=== PATIENT | male | born 1945 | race Caucasian/White ===

== ENCOUNTER 2021-07-17 15:43 | Emergency (ER) | payer OTHER, SELFPAY ==
[2021-07-17 15:44] VITALS: BP 142/39; PULSE 71; RESP 16; TEMP 36.6; O2SAT 97; BMI 27.8
--- NOTE | 2021-07-17 16:17 | NURSING ---
CALLED [facility]HAEL BROWN AND LEFT MESSAGE FOR BED CONTROL
--- NOTE | 2021-07-17 16:20 | EDS_ITS ---
HPI History of Present Illness Chief Complaint: Cellulitis Informant: patient and EMS Narrative Narrative: 75-year-old male presenting to the emergency department for evaluation of cellulitis. Patient states that he is in the wrong place that he is supposed to go to the wound care clinic. However the living facility is sent him and sent him here for IV antibiotics and to be set up with wound clinic as an outpatient. Patient reportedly has a history of diabetes hypertension peripheral vascular disease coronary artery disease and is a former smoker. 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 He states that at a point in time that he cannot recall he hit his right leg and tore the skin. He states that since that time to poor wound care it is gotten worse. He went to OSH several nights ago and it was recommended that he be transferred to the [facility] but he refused. He reportedly has been started on Bactrim and Keflex. Nursing reports stated that he has been refusing wound treatments. Patient denies this. [facility] Medical History Acute kidney failure Atherosclerotic heart disease Cellulitis Chronic combined systolic (congestive) and diastolic (congestive) heart failure Diabetes mellitus Hypertension Peripheral vascular disease Home Medications aspirin 325 mg PO DAILY 07/17/21 [History Last Taken Unknown] atorvastatin 40 mg PO DAILY 07/17/21 [History Last Taken Unknown] cephalexin [Keflex] 1,000 mg PO BID 07/17/21 [History Last Taken Unknown] insulin glargine [Lantus Solostar U-100 Insulin] 44 unit SUBCUT BREAKFAST 07/17/21 [History Last Taken Unknown] linagliptin [Tradjenta] 5 mg PO DAILY 07/17/21 [History Last Taken Unknown] lisinopril 10 mg PO DAILY 07/17/21 [History Last Taken Unknown] magnesium oxide 420 mg PO DAILY 07/17/21 [History Last Taken Unknown] metformin 500 mg PO BID 07/17/21 [History Last Taken Unknown] spironolactone 25 mg PO DAILY 07/17/21 [History Last Taken Unknown] torsemide 20 mg PO DAILY 07/17/21 [History Last Taken Unknown] Allergy/AdvReac Type Severity Reaction Status Date / Time vancomycin AdvReac Other Verified 07/17/21 15:48 Social History (Updated 07/17/21 @ 16:[address] Hayder Coronado, DO) service: Yes current gender identity: male Smoking Status: Former smoker ROS ROS ED Constitutional Constitutional ED: Denies chills, fever(s) or weight loss Eyes Eyes: Denies change in vision or diplopia ENT ENT ED: Denies ear pain, rhinorrhea or sore throat Cardiovascular Cardiovascular: Denies chest pain, orthopnea, palpitations or racing heartbeat Respiratory/Chest Respiratory/Chest: Denies cough, dyspnea or orthopnea Gastrointestinal Gastrointestinal: Denies abdominal pain, diarrhea, nausea or vomiting Genitourinary Genitourinary ED: Denies dysuria, hematuria or urinary frequency Musculoskeletal Musculoskeletal: Denies arthralgias or myalgias Integumentary Reports rash; Denies abscess Neurologic Neurologic: Denies headache(s) or weakness Psychiatric Psychiatric: Denies anxiety, depression, suicidal ideation or suicidal thoughts Endocrine Endocrinology: Denies polydipsia, polyphagia or polyuria Allergic/Immunologic Allergic/Immunologic ED: Denies mouth swelling, tongue swelling or urticaria EXAM Physical Exam Const Vital Signs: 07/17/21 15:44 07/17/21 17:22 Temperature 98 F 98 F Temperature Source Temporal Temporal Pulse Rate 71 72 Respiratory Rate 16 18 Blood Pressure 142/39 H 127/50 H Blood Pressure Mean 73 75 Pulse Ox 97 96 Oxygen Delivery Method Room Air Room Air Positive well nourished and well developed General Appearance ED: well developed HEENT Reports normocephalic, head/scalp atraumatic, TM's clear and moist mucous membranes Negative for trauma Tympanic Membrane ED: Yes TM's clear Eyes PERRL and EOMs intact bilaterally Neck no lymphadenopathy, supple and no JVD Resp normal respiratory effort and clear to auscultation bilaterally Cardio regular rate, regular rhythm and no murmurs GI normal to inspection, nondistended, normoactive bowel sounds and non-tender Palpation: soft Back/Spine no CVA tenderness and normal ROM Extremity Extremity Narrative: Left lower leg amputation Right lower leg demonstrates a 6 cm x 9 cm elliptical anterior leg ulceration. There is foul smell. There is surrounding erythema involving the foot the leg and up over to the medial aspect of the thigh. General Extremety ED: Negative for edema General Extremity: Negative for edema Neuro oriented x3 and CN's II-XII intact bilaterally Sensorium / Orientation: alert Motor Exam: strength 5/5 throughout Psych mental status grossly normal Mood & Affect: Negative for depressed or tearful Skin no rashes or lesions noted and no wounds MDM MDM MDM Narrative Medical decision making narrative: Patient's white count is 9.2 with a hemoglobin 11.1. Creatinine 0.97. Lactic acid is elevated at 3.2. While he does have an infection not sure that this represents a shock state. He is on metformin. Patient received a dose of Zosyn. No vancomycin was given secondary to allergy. Blood cultures and wound culture was obtained. [facility]. Lab Data Attestation: I reviewed the patient's lab results. Labs: Laboratory Results - last 24 hr 07/17/21 07/17/21 07/17/21 16:45 16:45 16:45 WBC 9.2 RBC 4.14 L Hgb 11.1 L Hct 35.4 L MCV 85.5 MCH 26.8 L MCHC 31.4 L RDW Std Deviation 52.0 H RDW Coeff of Mary Kay 16.5 H Plt Count 287 MPV 9.7 Immature Gran % (Auto) 1.100 H Neut % (Auto) 76.9 H Lymph % (Auto) 13.9 L [place] % (Auto) 7.4 Eos % (Auto) 0.3 Baso % (Auto) 0.4 Absolute Neuts (auto) 7.1 Absolute Lymphs (auto) 1.28 Nucleated RBC % 0 PT 13.7 INR 1.1 APTT 32.5 Sodium 135 L Potassium 3.6 Chloride 102 Carbon Dioxide 28.0 Anion Gap 5 BUN 24 H Creatinine 0.97 Estim Creat Clear Calc 71.16 Est GFR (MDRD) Af Amer 97 Est GFR (MDRD) Non-Af 81 BUN/Creatinine Ratio 24.8 H Glucose 153 H Lactic Acid Calcium 9.0 Total Bilirubin 0.40 AST 21 ALT 27 Alkaline Phosphatase 134 H Total Protein 7.1 Albumin 2.7 L Globulin 4.4 H Albumin/Globulin Ratio 0.6 L 07/17/21 16:45 WBC RBC Hgb Hct MCV MCH MCHC RDW Std Deviation RDW Coeff of Mary Kay Plt Count MPV Immature Gran % (Auto) Neut % (Auto) Lymph % (Auto) [place] % (Auto) Eos % (Auto) Baso % (Auto) Absolute Neuts (auto) Absolute Lymphs (auto) Nucleated RBC % PT INR APTT Sodium Potassium Chloride Carbon Dioxide Anion Gap BUN Creatinine Estim Creat Clear Calc Est GFR (MDRD) Af Amer Est GFR (MDRD) Non-Af BUN/Creatinine Ratio Glucose Lactic Acid 3.2 H* Calcium Total Bilirubin AST ALT Alkaline Phosphatase Total Protein Albumin Globulin Albumin/Globulin Ratio Discharge Plan Triage Chief Complaint: Cellulitis ED Provider: Hayder Coronado Dx/Rx/DC Orders Clinical Impression: Peripheral vascular disease, Diabetes mellitus, Cellulitis of leg, right, Diabetic leg ulcer Prescriptions: No Action atorvastatin 40 mg Tablet 40 mg PO DAILY RF: 0 metformin 500 mg Tablet 500 mg PO BID RF: 0 magnesium oxide 420 mg Tablet 420 mg PO DAILY RF: 0 torsemide 20 mg Tablet 20 mg PO DAILY RF: 0 aspirin 325 mg Tablet 325 mg PO DAILY RF: 0 spironolactone 25 mg Tablet 25 mg PO DAILY RF: 0 cephalexin [Keflex] 500 mg Capsule 1,000 mg PO BID RF: 0 lisinopril 10 mg Tablet 10 mg PO DAILY RF: 0 Lantus Solostar U-100 Insulin 100 unit/mL (3 mL) Insulin Pen 44 unit SUBCUT BREAKFAST RF: 0 Tradjenta 5 mg Tablet 5 mg PO DAILY RF: 0 [facility] Referrals: [facility],Out of [NON-STAFF] - Disposition Disposition: Acute Care Hospital Discharge Location: Department of [facility]
[2021-07-17 17:02] LABS: Absolute Lymphocyte Count 1.28 X10^3/uL (0.83-4.51); Absolute Neutrophil Count 7.1 X10^3/uL (2.0-7.7); Basophil# 0.04 X10^3/uL; Basophil% 0.4 % (0-1); Eosinophil# 0.03 X10^3/uL; Eosinophils% 0.3 % (0-5); Hematocrit 35.4 % (40-54); Hemoglobin 11.1 g/dL (13.0-16.5); Lymphocyte # 1.28 X10^3/ul (0.83-4.51); Lymphocyte % 13.9 % (19-41); Mean Corp Hgb Conc 31.4 g/dL (32-36); Mean Corpuscular Hgb 26.8 pg (27.0-32.0); Mean Corpuscular Volume 85.5 fL (80-94); Mean Platelet Vol. 9.7 fl (6.2-12.0); Monocyte# 0.68 X10^3/uL; Monocyte% 7.4 % (0-10); NRBC Flagged by Analyzer 0 % (0-5); Neutrophil # 7.08 X10^3/uL (2.7-7.7); Neutrophil % 76.9 % (47-70); Platelet Count 287 K/mm3 (150-450); RBC Distribution Width CV 16.5 % (11.6-14.6); Red Blood Count 4.14 M/mm3 (4.6-6.2); White Blood Count 9.2 K/mm3 (4.4-11.0)
--- NOTE | 2021-07-17 17:04 | NURSING ---
CALLED MICHAEL BROWN, TALKED TO MAINE. FAX IS [phone]
[2021-07-17 17:06] LABS: International Normalized Ratio 1.1; Prothrombin Time (Protime)PT. 13.7 SECONDS (11.7-14.9)
[2021-07-17 17:07] LABS: Partial Thromboplast Time 32.5 Seconds (24.1-36.2)
[2021-07-17 17:15] LABS: ALB/GLOB Ratio 0.6 RATIO (0.9-2.4); AST(SGOT) 21 U/L (15-37); Alanine Aminotransfer ALT/SGPT 27 U/L (16-61); Albumin, Serum 2.7 g/dL (3.2-5.0); Alkaline Phosphatase 134 U/L (45-117); Anion Gap 5 (5-15); BUN 24 mg/dL (7-18); BUN/Creat Ratio 24.8 RATIO (10-20); Chloride 102 mmol/L (98-107); Creatinine, Serum 0.97 mg/dL (0.70-1.30); EST Glomerular Filtration Rate 81 mL/min (>60); Est Glom Filt Rate - Afr Amer 97 mL/min (>60); Estimated Creatinine Clearance 71.16 ml/min; Globulin 4.4 g/dL (2.2-4.2); Glucose 153 mg/dL (74-106); Potassium 3.6 mmol/L (3.5-5.1); Protein, Total 7.1 g/dL (6.4-8.2); Sodium Level 135 mmol/L (136-145)
[2021-07-17 17:22] VITALS: BP 127/50; PULSE 72; RESP 18; TEMP 36.6; O2SAT 96
[2021-07-17 17:32] LABS: Lactic Acid 3.2 mmol/L (0.4-1.9)
--- NOTE | 2021-07-17 17:57 | NURSING ---
CALLED MARGRET, ETA IS 2 TO 3 HOURS. IRINA, DAIRY FARMWORKER AT [facility], WILL CALL AND GIVE THEM THE OK FOR PAYMENT
[2021-07-17 18:02] VITALS: BP 127/50; PULSE 72; RESP 18; TEMP 36.6; O2SAT 96
[2021-07-17 18:05] VITALS: BP 127/50; PULSE 72; RESP 18; TEMP 36.6; O2SAT 96
[2021-07-17 19:00] VITALS: RESP 17
[2021-07-17 19:18] VITALS: BP 107/42; PULSE 64; RESP 18; TEMP 36.6; O2SAT 96
[2021-07-17 20:50] LABS: Reflex Lactate? Y
== END 2021-07-17 20:14 | disposition short-term general hospital (02) ==
PROVIDERS: Emergency Provider Emergency Medicine; Visit Provider Emergency Medicine
DX: E11.622 Type 2 diabetes mellitus with other skin ulcer (principal); E11.51 Type 2 diabetes mellitus with diabetic peripheral angiopathy without gangrene; I11.0 Hypertensive heart disease with heart failure; I50.42 Chronic combined systolic (congestive) and diastolic (congestive) heart failure; Z79.4 Long term (current) use of insulin; L03.115 Cellulitis of right lower limb; Z87.891 Personal history of nicotine dependence; I25.10 Atherosclerotic heart disease of native coronary artery without angina pectoris; Z79.82 Long term (current) use of aspirin; Z79.899 Other long term (current) drug therapy
CPT/HCPCS: 80053; 83605; 85025; 85610; 85730; 87040; 87070; 87077; 87186; 87205; 87811; 96365; 99285; J7050; A4216